=== PATIENT | female | born 1930 | race Hispanic/Latino ===

== ENCOUNTER 2017-10-16 17:58 | Inpatient (IN) | payer MEDICARE ==
[~2017-10-16] VITALS: Ht 162.6 cm; Wt 74.7 kg
[2017-10-16] MEDS ORDERED: LEVOFLOXACIN 750 MG/D5W 150 ML 150 ML ONE (18:19)
[2017-10-16] MEDS ORDERED: SODIUM CHLORIDE 0.9% 1000ML 2,000 ML IV ONE (18:20)
[2017-10-16 18:37] LABS: ABG BASE EXCESS -28.5 mmol/L (-2.0-3.0); ABG HCO3 9.3 mmol/L (21.0-28.0); ABG OXYGEN SATURATION 67.4 % (95.0-99.0); ABG PCO2 77 mmHg (32-45)
[2017-10-16 18:45] LABS: BASOPHILS % (AUTO) 0.4 % (0.0-5.0); EOSINOPHILS % (AUTO) 0.4 % (0.0-8.0); HEMATOCRIT 34.3 % (36-48); LYMPHOCYTES % (AUTO) 13.3 % (21.0-51.0); MEAN CORPUSCULAR HEMOGLOBIN 26.8 pg (27.0-33.0); MEAN CORPUSCULAR HGB CONC 31.5 g/dL (32.0-36.0); MEAN CORPUSCULAR VOLUME 85.1 fL (79-99); MONOCYTES % (AUTO) 7.2 % (3.0-13.0); NEUTROPHILS % (AUTO) 78.7 % (40.0-77.0); PLATELET COUNT (AUTO) 336 K/uL (130-400); RED BLOOD CELL COUNT(AUTO) 4.03 MIL/uL (4.00-5.50); RED CELL DISTRIBUTION WIDTH 19.7 % (11.0-15.5); WHITE BLOOD COUNT (AUTO) 18.2 K/uL (4.8-10.8)
[2017-10-16 18:46] LABS: BILIRUBIN,URINE Negative (NEGATIVE); COLOR,URINE Dark Yellow (YELLOW); GLUCOSE, URINE (UA) Negative (NEGATIVE); KETONES,URINE Negative (NEGATIVE); LEUKOCYTE ESTERASE ,URINE Moderate (NEGATIVE); NITRATE,URINE Negative (NEGATIVE); OCCULT BLOOD,URINE Small (NEGATIVE); PH,URINE 8.5 (5.0-8.0); PROTEIN,URINE 300 (NEGATIVE); UROBILINOGEN,URINE 0.2 mg/dL (0.2-1.0)
[2017-10-16 18:52] LABS: ABG BASE EXCESS 3.5 mmol/L (-2.0-3.0); ABG HCO3 34.2 mmol/L (21.0-28.0); ABG OXYGEN SATURATION 97.1 % (95.0-99.0); ABG PCO2 83 mmHg (32-45)
[2017-10-16 18:58] LABS: PARTIAL THROMBOPLASTIN TIME 24.6 SEC (26.3-35.5); PROTHROMBIN TIME 10.5 SEC (9.6-11.6)
[2017-10-16 19:00] LABS: APPEARANCE,URINE CLOUDY (CLEAR)
[2017-10-16 19:13] LABS: B-TYPE NATRIURETIC PEPTIDE 870 pg/mL (0-100)
[2017-10-16 19:19] LABS: ALBUMIN 2.9 g/dL (3.5-5.0); BILIRUBIN,TOTAL 0.5 mg/dL (0.2-1.0); CREATINE KINASE MB 2.5 ng/mL (0.5-3.6); CREATININE 0.7 mg/dL (0.5-1.5); TOTAL PROTEIN, SERUM 7.7 g/dL (6.0-8.3); TROPONIN I 0.48 ng/mL (0.00-0.06)
[2017-10-16 19:22] LABS: POTASSIUM 6.1 mmol/L (3.5-5.1)
[2017-10-16 19:22] LABS: BACTERIA,URINE Moderate /HPF (None Seen); SQUAMOUS EPITHELIAL CELL,UR Rare /LPF (0-2); WBC,URINE TNTC /HPF (0-1)
[2017-10-16 19:23] LABS: CALCIUM OXALATE CRYSTALS,UR Rare /LPF (None Seen); TRIPLE PHOSPHATE CRYSTAL,UR Moderate /LPF (None Seen)
[2017-10-16 19:51] LABS: CREATININE 0.8 mg/dL (0.5-1.5); POTASSIUM 5.3 mmol/L (3.5-5.1)
[2017-10-16 19:56] LABS: ALBUMIN 2.8 g/dL (3.5-5.0); BILIRUBIN,TOTAL 0.3 mg/dL (0.2-1.0); TOTAL PROTEIN, SERUM 7.3 g/dL (6.0-8.3)
[2017-10-16 20:06] LABS: ABG BASE EXCESS 4.3 mmol/L (-2.0-3.0); ABG HCO3 31.8 mmol/L (21.0-28.0); ABG OXYGEN SATURATION 96.2 % (95.0-99.0); ABG PCO2 63 mmHg (32-45)
[2017-10-17] MEDS ORDERED: SODIUM CHLORIDE 0.9% 1000ML 1,000 ML IV SCH (01:12)
[2017-10-17] MEDS ORDERED: ACETAMINOPHEN 325 MG TAB PO PRN ×2 (01:15)
[2017-10-17] MEDS ORDERED: POTASSIUM CHLORIDE 20 MEQ ERTAB PO PRN (01:15)
[2017-10-17] MEDS ORDERED: DiphenhydrAMINE HCL 50 MG/ML VIAL IV PRN (01:15)
[2017-10-17] MEDS ORDERED: LIDOCAINE HCL-MPF 1% 2ML VIAL IVP PRN (01:15)
[2017-10-17] MEDS ORDERED: DEXTROSE 50%-WATER 50 ML DISP.SYRIN IV PRN (01:15)
[2017-10-17] MEDS ORDERED: LACTULOSE 20 GM/30 ML UDCUP PO PRN (01:15)
[2017-10-17] MEDS ORDERED: ONDANSETRON HCL 4 MG/2 ML VIAL IV PRN (01:15)
[2017-10-17] MEDS ORDERED: POTASSIUM CHLORIDE 20MEQ/100ML 100 ML IV PRN (01:15)
[2017-10-17] MEDS ORDERED: GLUCAGON 1MG KIT 1 MG ML IM PRN (01:15)
[2017-10-17] MEDS ORDERED: SODIUM CHLORIDE 0.9% 1000ML 1,000 ML IV ONE (02:19)
[2017-10-17] MEDS ORDERED: ZOSYN 3.375GM+NS 50ML 50 ML IV ONE ×2 (02:19→10:25)
[2017-10-17] MEDS: IPRATROPIUM/ALBUTEROL SULFATE 3 ML SOLUTION IH SCH ×6 (02:50→22:20)
[2017-10-17 04:32] LABS: ABG BASE EXCESS 5.9 mmol/L (-2.0-3.0); ABG HCO3 34.5 mmol/L (21.0-28.0); ABG OXYGEN SATURATION 96.8 % (95.0-99.0); ABG PCO2 68 mmHg (32-45)
[2017-10-17] MEDS ORDERED: ZOSYN 3.375GM+NS 50ML 50 ML IV SCH (05:00)
[2017-10-17] MEDS ORDERED: IPRATROPIUM/ALBUTEROL SULFATE 3 ML SOLUTION IH ONE ×3 (06:02→14:37)
[2017-10-17 07:26] LABS: CREATINE KINASE MB 0.5 ng/mL (0.5-3.6); TROPONIN I 0.16 ng/mL (0.00-0.06)
[2017-10-17] MEDS ORDERED: SODIUM POLYSTYRENE SULFONATE 15 GM/60 ML ML ONE (08:56)
[2017-10-17] MEDS ORDERED: ASPIRIN 325 MG TABLET ONE (10:24)
[2017-10-17] MEDS ORDERED: ENOXAPARIN SODIUM 30 MG/0.3 ML SQ ONE (10:25)
[2017-10-17] MEDS ORDERED: FAMOTIDINE/PF 20 MG/2 ML VIAL IV ONE (10:26)
[2017-10-17 13:21] LABS: CREATINE KINASE MB 1.5 ng/mL (0.5-3.6); TROPONIN I 0.29 ng/mL (0.00-0.06)
[2017-10-17] MEDS: ACETYLCYSTEINE 20% 200MG/ML 4ML VIAL IH SCH ×2 (14:00→21:00)
[2017-10-17 14:33] LABS: CREATININE 0.6 mg/dL (0.5-1.5); POTASSIUM 3.7 mmol/L (3.5-5.1)
[2017-10-17 14:39] LABS: ALBUMIN 2.5 g/dL (3.5-5.0); BILIRUBIN,TOTAL 0.4 mg/dL (0.2-1.0); TOTAL PROTEIN, SERUM 6.4 g/dL (6.0-8.3)
[2017-10-17 19:04] VITALS: BP 125/71
[2017-10-17 20:00] VITALS: BP 153/89
[2017-10-17] MEDS: FAMOTIDINE/PF 20 MG/2 ML VIAL IV SCH ×2 (21:00→22:31)
[2017-10-17] MEDS: INSULIN HUMULIN R 100 UNIT/ML 3ML SQ SCH (21:00)
[2017-10-17] MEDS: MEROPENEM 1 GM VIAL IVP SCH (22:31)
[2017-10-17 23:35] VITALS: BP 119/61
[2017-10-18] MEDS: LEVOFLOXACIN 500 MG/D5W 100 ML 100 ML IV SCH (00:14)
[2017-10-18] MEDS: IPRATROPIUM/ALBUTEROL SULFATE 3 ML SOLUTION IH SCH ×4 (01:20→18:57)
[2017-10-18 03:49] VITALS: BP 118/60
[2017-10-18] MEDS ORDERED: VITA1CAP PO (03:51)
[2017-10-18] MEDS ORDERED: METF500T6 PO (03:51)
[2017-10-18] MEDS ORDERED: SITA50TA PO (03:51)
[2017-10-18] MEDS ORDERED: IPRA3AMP4 IH (03:51)
[2017-10-18] MEDS ORDERED: ACET-2247 PO (03:51)
[2017-10-18] MEDS ORDERED: ATOR10TA69 PO (03:51)
[2017-10-18 03:53] LABS: BASOPHILS % (AUTO) 0.2 % (0.0-5.0); EOSINOPHILS % (AUTO) 0.1 % (0.0-8.0); HEMATOCRIT 30.4 % (36-48); LYMPHOCYTES % (AUTO) 7.4 % (21.0-51.0); MEAN CORPUSCULAR HEMOGLOBIN 26.7 pg (27.0-33.0); MEAN CORPUSCULAR HGB CONC 30.9 g/dL (32.0-36.0); MEAN CORPUSCULAR VOLUME 86.2 fL (79-99); MONOCYTES % (AUTO) 6.6 % (3.0-13.0); NEUTROPHILS % (AUTO) 85.7 % (40.0-77.0); PLATELET COUNT (AUTO) 267 K/uL (130-400); RED BLOOD CELL COUNT(AUTO) 3.52 MIL/uL (4.00-5.50); RED CELL DISTRIBUTION WIDTH 19.7 % (11.0-15.5); WHITE BLOOD COUNT (AUTO) 9.8 K/uL (4.8-10.8)
[2017-10-18 04:06] LABS: CREATININE 0.6 mg/dL (0.5-1.5); POTASSIUM 3.1 mmol/L (3.5-5.1)
[2017-10-18 04:12] LABS: B-TYPE NATRIURETIC PEPTIDE 1150 pg/mL (0-100)
[2017-10-18 04:13] LABS: HEMOGLOBIN A1C 5.7 % (4.0-6.0)
[2017-10-18 04:18] LABS: ABG BASE EXCESS 8.7 mmol/L (-2.0-3.0); ABG HCO3 38.1 mmol/L (21.0-28.0); ABG PCO2 76 mmHg (32-45)
[2017-10-18] MEDS: INSULIN HUMULIN R 100 UNIT/ML 3ML SQ SCH ×4 (05:47→18:00)
[2017-10-18] MEDS ORDERED: VANCOMYCIN PROTOCOL PER PHARMACY IV PRN (07:15)
[2017-10-18 07:32] VITALS: BP 123/68
[2017-10-18] MEDS: ACETYLCYSTEINE 20% 200MG/ML 4ML VIAL IH SCH (09:00)
[2017-10-18] MEDS: LINAGLIPTIN 5 MG TABLET PO SCH (10:47)
[2017-10-18] MEDS: FAMOTIDINE/PF 20 MG/2 ML VIAL IV SCH ×2 (10:47→21:44)
[2017-10-18] MEDS: VITAMIN B COMPLEX 1 CAPSULE PO SCH (10:47)
[2017-10-18] MEDS: ASPIRIN 325 MG TABLET PO SCH (10:47)
[2017-10-18] MEDS: FUROSEMIDE 10 MG/ML 2ML VIAL IV SCH ×2 (10:48→18:27)
[2017-10-18] MEDS: VANCOMYCIN 1GM+NS 250ML 250 ML IV SCH (10:48)
[2017-10-18] MEDS: POTASSIUM CHLORIDE 10% ELIXIR 20 MEQ/15 ML UDCUP PO PRN ×3 (10:48→22:42)
[2017-10-18] MEDS: ENOXAPARIN SODIUM 30 MG/0.3 ML SQ SCH (10:49)
[2017-10-18 11:24] VITALS: BP 119/68
[2017-10-18] MEDS: MEROPENEM 1 GM VIAL IVP SCH ×2 (12:06→21:44)
[2017-10-18] MEDS ORDERED: COMPOUND PO MISCELLANEOUS 1 EACH MISC MISC PRN (12:15)
[2017-10-18] MEDS: ACETYLCYSTEINE 10% 100MG/ML 4ML VIAL IH SCH ×2 (13:32→18:57)
[2017-10-18 16:11] VITALS: BP 108/57
[2017-10-18 19:32] VITALS: BP 123/65
[2017-10-18] MEDS: ATORVASTATIN CALCIUM 10 MG TABLET PO SCH (21:44)
[2017-10-18 23:52] VITALS: BP 137/75
[2017-10-19] MEDS: IPRATROPIUM/ALBUTEROL SULFATE 3 ML SOLUTION IH SCH ×5 (00:30→23:18)
[2017-10-19] MEDS: ACETYLCYSTEINE 10% 100MG/ML 4ML VIAL IH SCH ×3 (00:31→10:48)
[2017-10-19] MEDS: LEVOFLOXACIN 500 MG/D5W 100 ML 100 ML IV SCH (01:33)
[2017-10-19 04:03] VITALS: BP 134/72
[2017-10-19] MEDS: MEROPENEM 1 GM VIAL IVP SCH ×3 (04:58→22:02)
[2017-10-19 05:17] LABS: ABG BASE EXCESS 10.6 mmol/L (-2.0-3.0); ABG HCO3 39.9 mmol/L (21.0-28.0); ABG OXYGEN SATURATION 98.3 % (95.0-99.0); ABG PCO2 75 mmHg (32-45)
[2017-10-19 05:17] LABS: BASOPHILS % (AUTO) 0.3 % (0.0-5.0); EOSINOPHILS % (AUTO) 0.4 % (0.0-8.0); HEMATOCRIT 31.2 % (36-48); MEAN CORPUSCULAR HEMOGLOBIN 27.3 pg (27.0-33.0); MEAN CORPUSCULAR HGB CONC 31.6 g/dL (32.0-36.0); MEAN CORPUSCULAR VOLUME 86.4 fL (79-99); MONOCYTES % (AUTO) 9.4 % (3.0-13.0); NEUTROPHILS % (AUTO) 76.9 % (40.0-77.0); PLATELET COUNT (AUTO) 292 K/uL (130-400); RED BLOOD CELL COUNT(AUTO) 3.61 MIL/uL (4.00-5.50); RED CELL DISTRIBUTION WIDTH 19.5 % (11.0-15.5); WHITE BLOOD COUNT (AUTO) 10.6 K/uL (4.8-10.8)
[2017-10-19 05:31] LABS: CREATININE 0.8 mg/dL (0.5-1.5); POTASSIUM 3.5 mmol/L (3.5-5.1)
[2017-10-19 05:34] LABS: B-TYPE NATRIURETIC PEPTIDE 1010 pg/mL (0-100)
[2017-10-19] MEDS: INSULIN HUMULIN R 100 UNIT/ML 3ML SQ SCH ×4 (05:49→18:00)
[2017-10-19] MEDS: FUROSEMIDE 10 MG/ML 2ML VIAL IV SCH ×2 (06:22→18:29)
[2017-10-19 07:00] VITALS: BP 124/76
[2017-10-19] MEDS: VANCOMYCIN 1GM+NS 250ML 250 ML IV SCH (08:36)
[2017-10-19 11:00] VITALS: BP 127/75
[2017-10-19] MEDS: FAMOTIDINE/PF 20 MG/2 ML VIAL IV SCH ×2 (11:13→22:03)
[2017-10-19] MEDS: ASPIRIN 325 MG TABLET PO SCH (11:14)
[2017-10-19] MEDS: LINAGLIPTIN 5 MG TABLET PO SCH (11:14)
[2017-10-19] MEDS: ENOXAPARIN SODIUM 30 MG/0.3 ML SQ SCH (11:14)
[2017-10-19] MEDS: VITAMIN B COMPLEX 1 CAPSULE PO SCH (11:14)
[2017-10-19 16:00] VITALS: BP 129/74
[2017-10-19 20:27] VITALS: BP 138/81
[2017-10-19] MEDS: ATORVASTATIN CALCIUM 10 MG TABLET PO SCH (22:02)
[2017-10-20] VITALS (7 sets, daily range): BP systolic 105–119; BP diastolic 51–68
[2017-10-20] MEDS: LEVOFLOXACIN 500 MG/D5W 100 ML 100 ML IV SCH (01:10)
[2017-10-20 04:08] LABS: BASOPHILS % (AUTO) 0.5 % (0.0-5.0); EOSINOPHILS % (AUTO) 0.6 % (0.0-8.0); MEAN CORPUSCULAR HEMOGLOBIN 27.5 pg (27.0-33.0); MEAN CORPUSCULAR HGB CONC 31.9 g/dL (32.0-36.0); MEAN CORPUSCULAR VOLUME 86.1 fL (79-99); MONOCYTES % (AUTO) 8.7 % (3.0-13.0); NEUTROPHILS % (AUTO) 77.2 % (40.0-77.0); PLATELET COUNT (AUTO) 254 K/uL (130-400); RED CELL DISTRIBUTION WIDTH 19.4 % (11.0-15.5); WHITE BLOOD COUNT (AUTO) 10.2 K/uL (4.8-10.8)
[2017-10-20 04:11] LABS: CREATININE 0.7 mg/dL (0.5-1.5); POTASSIUM 3.5 mmol/L (3.5-5.1)
[2017-10-20] MEDS: POTASSIUM CHLORIDE 10% ELIXIR 20 MEQ/15 ML UDCUP PO PRN ×2 (04:31→06:17)
[2017-10-20] MEDS: MEROPENEM 1 GM VIAL IVP SCH ×3 (04:31→21:07)
[2017-10-20] MEDS: INSULIN HUMULIN R 100 UNIT/ML 3ML SQ SCH ×5 (05:07→23:51)
[2017-10-20 05:14] LABS: B-TYPE NATRIURETIC PEPTIDE 803 pg/mL (0-100)
[2017-10-20] MEDS: IPRATROPIUM/ALBUTEROL SULFATE 3 ML SOLUTION IH SCH ×4 (06:17→23:14)
[2017-10-20] MEDS: FUROSEMIDE 10 MG/ML 2ML VIAL IV SCH ×3 (06:17→23:45)
[2017-10-20] MEDS: VITAMIN B COMPLEX 1 CAPSULE PO SCH (11:12)
[2017-10-20] MEDS: ASPIRIN 325 MG TABLET PO SCH (11:13)
[2017-10-20] MEDS: ENOXAPARIN SODIUM 30 MG/0.3 ML SQ SCH (11:13)
[2017-10-20] MEDS: FUROSEMIDE 20 MG TABLET PO SCH (11:13)
[2017-10-20] MEDS: LINAGLIPTIN 5 MG TABLET PO SCH (11:13)
[2017-10-20] MEDS: VANCOMYCIN 1GM+NS 250ML 250 ML IV SCH (11:14)
[2017-10-20] MEDS: FAMOTIDINE/PF 20 MG/2 ML VIAL IV SCH ×2 (11:14→21:07)
[2017-10-20] MEDS: ACETYLCYSTEINE 10% 100MG/ML 4ML VIAL IH SCH ×3 (12:00→23:14)
[2017-10-20] MEDS: HEPARIN SODIUM 5000UNIT/ML 1ML VIAL SQ SCH ×2 (12:13→23:47)
[2017-10-20] MEDS: ATORVASTATIN CALCIUM 10 MG TABLET PO SCH (21:07)
[2017-10-21] MEDS: LEVOFLOXACIN 500 MG/D5W 100 ML 100 ML IV SCH (01:08)
[2017-10-21 03:36] VITALS: BP 99/56
[2017-10-21 04:21] LABS: HEMATOCRIT 31.8 % (36-48); MEAN CORPUSCULAR HEMOGLOBIN 27.4 pg (27.0-33.0); MEAN CORPUSCULAR HGB CONC 32.3 g/dL (32.0-36.0); MEAN CORPUSCULAR VOLUME 84.9 fL (79-99); PLATELET COUNT (AUTO) 239 K/uL (130-400); RED BLOOD CELL COUNT(AUTO) 3.75 MIL/uL (4.00-5.50); RED CELL DISTRIBUTION WIDTH 18.8 % (11.0-15.5); WHITE BLOOD COUNT (AUTO) 9.8 K/uL (4.8-10.8)
[2017-10-21] MEDS: MEROPENEM 1 GM VIAL IVP SCH ×3 (04:32→20:43)
[2017-10-21 04:33] LABS: CREATININE 0.7 mg/dL (0.5-1.5); POTASSIUM 3.1 mmol/L (3.5-5.1)
[2017-10-21] MEDS: INSULIN HUMULIN R 100 UNIT/ML 3ML SQ SCH ×3 (04:37→18:05)
[2017-10-21] MEDS: POTASSIUM CHLORIDE 10% ELIXIR 20 MEQ/15 ML UDCUP PO PRN ×3 (04:51→13:08)
[2017-10-21] MEDS: ACETYLCYSTEINE 10% 100MG/ML 4ML VIAL IH SCH ×3 (06:02→18:21)
[2017-10-21] MEDS: IPRATROPIUM/ALBUTEROL SULFATE 3 ML SOLUTION IH SCH ×3 (06:02→18:20)
[2017-10-21 07:20] VITALS: BP 116/61
[2017-10-21] MEDS: ASPIRIN 325 MG TABLET PO SCH (09:09)
[2017-10-21] MEDS: VANCOMYCIN 1GM+NS 250ML 250 ML IV SCH (09:09)
[2017-10-21] MEDS: VITAMIN B COMPLEX 1 CAPSULE PO SCH (09:09)
[2017-10-21] MEDS: FUROSEMIDE 20 MG TABLET PO SCH (09:09)
[2017-10-21] MEDS: FAMOTIDINE/PF 20 MG/2 ML VIAL IV SCH ×2 (09:10→20:43)
[2017-10-21] MEDS: LINAGLIPTIN 5 MG TABLET PO SCH (09:10)
[2017-10-21] MEDS: ENOXAPARIN SODIUM 30 MG/0.3 ML SQ SCH (09:10)
[2017-10-21 11:32] VITALS: BP 121/69
[2017-10-21 16:23] VITALS: BP 122/67
[2017-10-21 20:10] VITALS: BP 119/59
[2017-10-21] MEDS: ATORVASTATIN CALCIUM 10 MG TABLET PO SCH (20:43)
[2017-10-21 23:08] VITALS: BP 109/69
[2017-10-22] MEDS: IPRATROPIUM/ALBUTEROL SULFATE 3 ML SOLUTION IH SCH ×3 (00:41→11:30)
[2017-10-22] MEDS: ACETYLCYSTEINE 10% 100MG/ML 4ML VIAL IH SCH ×3 (00:41→11:30)
[2017-10-22] MEDS: LEVOFLOXACIN 500 MG/D5W 100 ML 100 ML IV SCH (00:44)
[2017-10-22 03:44] VITALS: BP 119/72
[2017-10-22 04:05] LABS: HEMATOCRIT 34.2 % (36-48); MEAN CORPUSCULAR HEMOGLOBIN 27.5 pg (27.0-33.0); MEAN CORPUSCULAR HGB CONC 32.7 g/dL (32.0-36.0); MEAN CORPUSCULAR VOLUME 84.2 fL (79-99); PLATELET COUNT (AUTO) 224 K/uL (130-400); RED BLOOD CELL COUNT(AUTO) 4.06 MIL/uL (4.00-5.50); RED CELL DISTRIBUTION WIDTH 19.3 % (11.0-15.5); WHITE BLOOD COUNT (AUTO) 10.4 K/uL (4.8-10.8)
[2017-10-22 04:07] LABS: CREATININE 0.6 mg/dL (0.5-1.5); POTASSIUM 3.4 mmol/L (3.5-5.1)
[2017-10-22] MEDS: MEROPENEM 1 GM VIAL IVP SCH ×2 (04:12→11:51)
[2017-10-22] MEDS: INSULIN HUMULIN R 100 UNIT/ML 3ML SQ SCH ×3 (05:35→11:56)
[2017-10-22] MEDS: POTASSIUM CHLORIDE 10% ELIXIR 20 MEQ/15 ML UDCUP PO PRN ×2 (05:36→09:37)
[2017-10-22 07:27] VITALS: BP 110/64
[2017-10-22] MEDS: ASPIRIN 325 MG TABLET PO SCH (09:41)
[2017-10-22] MEDS: LINAGLIPTIN 5 MG TABLET PO SCH (09:41)
[2017-10-22] MEDS: FAMOTIDINE/PF 20 MG/2 ML VIAL IV SCH (09:41)
[2017-10-22] MEDS: FUROSEMIDE 20 MG TABLET PO SCH (09:41)
[2017-10-22] MEDS: ENOXAPARIN SODIUM 30 MG/0.3 ML SQ SCH (09:42)
[2017-10-22] MEDS: VANCOMYCIN 1GM+NS 250ML 250 ML IV SCH (09:45)
[2017-10-22] MEDS: VITAMIN B COMPLEX 1 CAPSULE PO SCH (09:45)
[2017-10-22 11:23] VITALS: BP 131/70
== END 2017-10-22 16:50 | disposition hospice, home (50) | DRG 871 ==
LOC: EDH 17:58 → EDHIP 10-17 00:35 → 2AH 10-17 18:54
PROVIDERS: ADMIT Family Medicine; ATTEND Family Medicine
PROC: 5A09357 Assistance with Respiratory Ventilation, Less than 24 Consecutive Hours, Continuous Positive Airway Pressure (ICD-10-PCS; principal; 2017-10-17)
PROC: 5A09357 Assistance with Respiratory Ventilation, Less than 24 Consecutive Hours, Continuous Positive Airway Pressure (ICD-10-PCS; 2017-10-19)
PROC: 5A09357 Assistance with Respiratory Ventilation, Less than 24 Consecutive Hours, Continuous Positive Airway Pressure (ICD-10-PCS; 2017-10-20)
PROC: 5A09357 Assistance with Respiratory Ventilation, Less than 24 Consecutive Hours, Continuous Positive Airway Pressure (ICD-10-PCS; 2017-10-21)
DX: A41.9 Sepsis, unspecified organism (principal); J18.9 Pneumonia, unspecified organism; J96.21 Acute and chronic respiratory failure with hypoxia; J90 Pleural effusion, not elsewhere classified; N17.9 Acute kidney failure, unspecified; L89.152 Pressure ulcer of sacral region, stage 2; E87.5 Hyperkalemia; E87.0 Hyperosmolality and hypernatremia; R13.12 Dysphagia, oropharyngeal phase; J96.22 Acute and chronic respiratory failure with hypercapnia; N39.0 Urinary tract infection, site not specified; Z93.1 Gastrostomy status; D64.9 Anemia, unspecified; E11.9 Type 2 diabetes mellitus without complications; E86.0 Dehydration; B96.89 Other specified bacterial agents as the cause of diseases classified elsewhere; F03.90 Unspecified dementia, unspecified severity, without behavioral disturbance, psychotic disturbance, mood disturbance, and anxiety; I10 Essential (primary) hypertension; I25.10 Atherosclerotic heart disease of native coronary artery without angina pectoris; Y95 Nosocomial condition; Z16.24 Resistance to multiple antibiotics; Z51.5 Encounter for palliative care; Z66 Do not resuscitate; Z74.01 Bed confinement status; Z86.711 Personal history of pulmonary embolism; Z86.718 Personal history of other venous thrombosis and embolism; Z95.5 Presence of coronary angioplasty implant and graft
CPT/HCPCS: 31720; 36415; 36600; 71045; 80048; 80053; 80061; 81001; 82330; 82435; 82550; 82553; 82803; 82947; 82948; 83036; 83605; 83874; 83880; 84132; 84295; 84484; 85018; 85025; 85027; 85610; 85730; 87040; 87088; 87186; 87804; 93005; 93306; 94640; 94660; 94664; 94667; 94668; 99291; A4218; J1644; J1650; J1815; J1940; J1956; J2185; J2543; J3370; J3490; J7030; J7608